=== PATIENT | female | born 1975 | race Two or more races ===

== ENCOUNTER 2019-12-14 21:39 | Emergency (ER) | payer SELFPAY ==
[~2019-12-14] VITALS: Ht 152.4 cm; Wt 64.0 kg
[2019-12-15 03:09] LABS: BASOPHILS % 1.1 % (0.0-2.0); EOSINOPHILS % 1.2 % (0.0-5.0); HEMATOCRIT. 39.2 % (36.0-48.0); HEMOGLOBIN. 13.2 g/dL (12.0-16.0); LYMPHOCYTES % 20.9 % (20.0-50.0); MEAN CORPUSCULAR HEMOGLOBIN 27.7 pg (28.0-32.0); MEAN CORPUSCULAR VOLUME 82.4 fL (81.0-99.0); MEAN PLATELET VOLUME 8.8 fl (7.4-10.4); MONOCYTES % 6.8 % (2.0-8.0); PLATELET 293 x1000/uL (130-400); RED BLOOD CELL COUNT 4.76 mill/uL (4.2-5.4); RED CELL DISTRIBUTION WIDTH 14.3 % (11.6-14.6)
[2019-12-15 03:17] LABS: CHLORIDE 109 mEq/L (98-107)
[2019-12-15 04:49] VITALS: BP 125/78
== END 2019-12-15 05:01 | disposition home or self-care (01) ==
LOC: ER 21:39
DX: I10 Essential (primary) hypertension (principal); R42 Dizziness and giddiness
CPT/HCPCS: 36415; 71045; 80053; 81025; 84484; 85025; 93005; 99285